=== PATIENT | male | born 1975 | race Caucasian/White ===

== ENCOUNTER 2018-03-26 23:17 | Emergency (ER) | payer OTHER ==
[2018-03-26 23:21] VITALS: BP 154/86; PULSE 88; TEMP 97.9; BMI 30.1
[2018-03-26] MEDS ORDERED: CEPHALEXIN MONOHYDRATE 500 MG CAPSULE (UD) PO ONE (23:37)
[2018-03-26] MEDS ORDERED: DIPHTH,PERTUSS(ACELL),TET 0.5 ML DISP.SYRIN IM ONE (23:37)
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
[2018-03-26] MEDS ORDERED: SILVER SULFADIAZINE 1% TOP CREAM 50 GM JAR TP ONE (23:45)
[2018-03-27] MEDS ORDERED: CEPHALEXIN MONOHYDRATE 500 MG CAPSULE (UD) ONE (00:27)
[2018-03-27] MEDS ORDERED: SILVER SULFADIAZINE 1% TOP CREAM 50 GM JAR TP ONE (00:27)
== END 2018-03-27 00:42 | disposition home or self-care (01) ==
LOC: JERFT 23:17
PROC: 2W2FX4Z Dressing of Left Hand using Bandage (ICD-10-PCS; principal; 2018-03-26)
PROC: 3E0234Z Introduction of Serum, Toxoid and Vaccine into Muscle, Percutaneous Approach (ICD-10-PCS; 2018-03-26)
DX: T23.262A Burn of second degree of back of left hand, initial encounter (principal); X12.XXXA Contact with other hot fluids, initial encounter; Y93.G3 Activity, cooking and baking; Y92.89 Other specified places as the place of occurrence of the external cause; Y99.0 Civilian activity done for income or pay; F17.210 Nicotine dependence, cigarettes, uncomplicated; E11.9 Type 2 diabetes mellitus without complications
CPT/HCPCS: 90715; 99281-25

== ENCOUNTER 2018-10-18 11:29 | Emergency (ER) | payer OTHER ==
[2018-10-18 11:38] VITALS: BP 150/90; PULSE 80; TEMP 97.9; BMI 26.5
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
[2018-10-18] MEDS ORDERED: SILVER SULFADIAZINE 1% TOP CREAM 50 GM JAR TP ONE ×2 (12:12→12:21)
[2018-10-18] MEDS ORDERED: IBUPROFEN 600 MG TABLET (FP) PO ONE ×2 (12:21)
== END 2018-10-18 12:36 | disposition home or self-care (01) ==
LOC: JERFT 11:29
PROC: 2W2SX4Z Dressing of Right Foot using Bandage (ICD-10-PCS; principal; 2018-10-18)
DX: T25.221A Burn of second degree of right foot, initial encounter (principal); X10.1XXA Contact with hot food, initial encounter; Y93.89 Activity, other specified; Y92.29 Other specified public building as the place of occurrence of the external cause; Y99.0 Civilian activity done for income or pay
CPT/HCPCS: 99281-25

== ENCOUNTER 2018-10-30 11:19 | Emergency (ER) | payer OTHER ==
[2018-10-30 12:04] VITALS: BP 142/89; PULSE 72; TEMP 98.3; BMI 27.4
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
== END 2018-10-30 13:25 | disposition home or self-care (01) ==
LOC: JER 11:19
DX: Z09 Encounter for follow-up examination after completed treatment for conditions other than malignant neoplasm (principal); T25.221D Burn of second degree of right foot, subsequent encounter; X10.1XXD Contact with hot food, subsequent encounter
CPT/HCPCS: 99282-25